=== PATIENT | male | born 1965 | race Caucasian/White ===

== ENCOUNTER 2023-03-16 14:47 | Emergency (ER) | payer OTHER ==
[2023-03-16 15:13] VITALS: O2SAT 95
[2023-03-16] MEDS ORDERED: Adacel Vial IM ONE ×2 (15:18→15:32)
[2023-03-16 16:01] VITALS: PULSE 84
--- NOTE | 2023-03-16 16:03 | XRAY ---
CLINICAL HISTORY:Accident. COMPARISON:None. TECHNIQUES:Axial non-contrast CT scan of the brain was performed from the skull base to the high parietal region, with bone window, coronal, and sagittal reformats. FINDINGS: The visualized brain parenchyma shows normal appearance. No focal parenchymal abnormalities are demonstrated. Hardy-white matter differentiation is maintained. No midline shifts or deformity. No intracerebral or extra axial hematoma. Normal size and configuration of the cerebral ventricles. Normal CT appearance of the posterior fossa structures namely the cerebellar hemispheres, brainstem, and cerebellar peduncles. The cerebellopontine angles are clear. The pituitary gland, the pineal gland, and the optic chiasm is unremarkable. The osseous structures in the skull base are unremarkable. No definite calvarium fractures. The scanned paranasal sinuses are clear. IMPRESSION: Normal CT study of the brain and skull bones. Electronically Signed by: Kate Saba MD. 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
[2023-03-16] MEDS ORDERED: HYDROCODONE-ACETAMIN 10-325 MG PO ONE (16:27)
[2023-03-16] MEDS ORDERED: HYDROCODONE-ACETAMIN 10-325 MG ONE (16:28)
--- NOTE | 2023-03-16 16:31 | XRAY ---
CLINICAL HISTORY:Accident. COMPARISON:None. TECHNIQUES:A thin axial CT of the cervical spine was performed with sagittal and coronal reconstructions without contrast. FINDINGS: Straightening of the cervical curvature. Normal alignment of the cervical vertebra. No spondylolithesis. No evident fracture lines. The vertebral bodies are normal in height. No lytic or sclerotic bone lesion. Cervical spondylodegenerative changes with multilevel vertebral end plates marginal osteophytes formation. The craniovertebral measures are unremarkable. Narrowing of C5-C6 and C6-C7 intervertebral disc spaces. Level by Level analysis. C2-C3: No central canal or neuroforaminal stenosis. C3-C4: No central canal or neuroforaminal stenosis. C4-C5: central osteophytic posterior focal protrusion with no related neuroforaminal stenosis. C5-C6: diffuse osteophytic posterior disc bulge causing mild central canal or neuroforaminal stenosis. C6-C7: diffuse disc bulge causing mild central canal or neuroforaminal stenosis. IMPRESSION: Evidence of cervical muscle spasm. No fracture was identified. Cervical spondylosis. C5-C6 and C6-C7 focal disc lesions causing neural impingement. Electronically Signed by: Kate Saba MD. 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
--- NOTE | 2023-03-16 16:33 | ERPHSYRPT ---
- History of Present Illness Source: patient, other () Exam Limitations: no limitations Patient Subjective Stated Complaint: Pt was running an escavator when it jumped forward and pt was thrown into the roll bar and hit his head causing a laceration to his upper medial forehead and jammed his neck causing pain in his neck Triage Nursing Assessment: Pt brought to the ER by his daughter, hypertensive, rates pain as 3/10, 3.5 cm laceration to the distal medial forehead, pain to the neck, bleeding controlled, denies LOC, not on blood thinners, denies any other injuries Physician History: 57 yo WM w head injury/scalp lac after hitting head on roll bar while operating an 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 Pt denies LOC but was dazed. pain is moderate, and he alos complains of cervical pain. He denies other injuries at this time and will need a Tdap. C-collar placed on pt. Occurred: just prior to arrival Severity: moderate Head Injury Location: frontal Method of Injury: direct blow Loss of Consciousness: no loss of consciousness, dazed Associated Symptoms: denies symptoms Allergies/Adverse Reactions: No Known Drug Allergies Allergy (Verified 03/16/23 15:13) Home Medications: Tamsulosin HCl 0.4 mg [Flomax 0.4 MG] 0.4 mg PO BID 03/16/23 [History] Hx Influenza Vaccination/Date Given: No Hx Pneumococcal Vaccination/Date Given: No Travel Risk - International Travel Have you traveled outside of the country in past 3 weeks: No - Coronavirus Screening Are you exhibiting any of the following symptoms?: No Close contact with a COVID-19 positive Pt in past 14-21 Days: No - Vaccine Status Have you recieved a Covid-19 vaccination: Yes 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 - Vaccination Dates Date of 2cond Vaccination (if applicable): 2020 - Review of Systems Constitutional: No Symptoms Eyes: No Symptoms Ears, Nose, & Throat: No Symptoms Respiratory: No Symptoms Cardiac: No Symptoms Abdominal/Gastrointestinal: No Symptoms Genitourinary Symptoms: No Symptoms Musculoskeletal: No Symptoms, Neck Pain Skin: No Symptoms Neurological: No Symptoms, Headache Psychological: No Symptoms Endocrine: No Symptoms Hematologic/Lymphatic: No Symptoms Immunological/Allergic: No Symptoms - Past Medical History Pertinent Past Medical History: Yes Respiratory History: Sleep Apnea Other Medical History: prostate - Past Surgical History Past Surgical History: No - Social History Smoking Status: Smoker, status unknown Exposure to second hand smoke: No Drug Use: none Patient Lives Alone: No - Nursing Vital Signs Nursing Vital Signs: Initial Vital Signs Temperature 97.6 F 03/16/23 14:57 Pulse Rate 80 03/16/23 14:57 Blood Pressure 144/84 03/16/23 14:57 O2 Sat by Pulse Oximetry 95 03/16/23 14:57 Pain Scale Pain Intensity 0 Hypertensive - [place] Coma Score Best Eye Response ([place]): (4) open spontaneously Best Verbal Response ([place]): (5) oriented Best Motor Response ([place]): (6) obeys commands [place] Total: 15 - Physical Exam General Appearance: no apparent distress Head Injury: lacerations (3.5cm frontal scalp laceration) Eye Exam: bilateral eye: normal inspection, PERRL, EOMI ENT Exam: airway nml, No evidence of ENT injury, No dental injury, No nml ext.inspection, No clear fluid (ears), No clear fluid (nose) Neck Exam: supple, trachea midline, other (C-spine TTP) Cardiovascular/Respiratory Exam: chest non-tender, normal breath sounds, regular rate/rhythm, heart sounds normal Gastrointestinal/Abdominal Exam: soft, non tender Back Exam: normal inspection, normal range of motion, No vertebral tenderness Extremity Exam: non-tender, normal range of motion, normal inspection, normal capillary refill Mental Status Exam: alert, oriented x 3, 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 Exam: normal hearing, normal speech, PERRL Coordination/Gait Exam: normal gait, normal cerebellar function, negative Romberg's sign Motor/Sensory Exam: no motor deficit, no sensory deficit, no pronator drift, negative Babinski's sign DTR Exam: bicep (R): 2+, bicep (L): 2+ Skin Exam: normal color, warm, dry, No rash Lymphatic Exam: No adenopathy SpO2 Interpretation: normal SpO2: 95 O2 Delivery: Room Air Procedures - Laceration/Wound Repair Frontal Time of Procedure: 16:35 Wound Location: head (Frontal scalp) Wound Length (cm): 3.5 Wound's Depth, Shape: superficial Wound Explored: clean Irrigated: No Hibiclens Prep: Yes Wound Repaired With: [place] ([place] x5) Layer Closure?: No - Course Nursing assessment & vital signs reviewed: Yes - CT Exams Head CT Interpretation: Tele-radiologist Report (CT head negative) Cervical Spine CT Interpretation: Tele-radiologist Report (No fx/cervical muscle spasm/DDD) Ordered Tests: Active Orders 24 hr Category Date Time Status CERVICAL SPINE WO CONTRAST [CT] Stat Exams 03/16/23 15:14 Completed HEAD WITHOUT CONTRAST [CT] Stat Exams 03/16/23 15:14 Completed Medication Summary Discontinued Medications Generic Name Dose Route Start Last Admin Trade Name Nasir PRN Reason Stop Dose Admin Hydrocodone Bitart/Acetaminophen 1 tablet 03/16/23 16:27 03/16/23 16:31 Hydrocodone/Acetamin 10-325 Mg Tablet PO 03/16/23 16:28 1 tablet STAT ONE Administration Hydrocodone Bitart/Acetaminophen Confirm 03/16/23 16:28 Hydrocodone/Acetamin 10-325 Mg Tablet Administered 03/16/23 16:29 Dose 1 tablet .ROUTE .STK-MED ONE Diphtheria/Tetanus/Acell Pertussis 0.5 ml 03/16/23 15:18 03/16/23 15:32 Tdap --Diph,Pertuss(Acell),Tet Vac/Pf 0.5 Ml Vial IM 03/16/23 15:19 0.5 ml .ONCE ONE Administration Diphtheria/Tetanus/Acell Pertussis Confirm 03/16/23 15:32 Tdap --Diph,Pertuss(Acell),Tet Vac/Pf 0.5 Ml Vial Administered 03/16/23 15:33 Dose 0.5 ml IM .STK-MED ONE - Progress Progress Note: 03/16/23 16:39 Nursing note and vital signs reviewed No food or housing insecurities noted Pt refused pain meds after H&P Later norco10 po x1 C-collar placed per nursing, later removed per ER physician after CT C-spine neg for fx Tdap given Counseled pt/family regarding: diagnosis, need for follow-up, rad results Medical Desision Making - Independent Historian Additional History obtained from: Spouse - Diagnostic Testing Radiological Interpretation: Reviewed by me, Teleradiologist Report - Risk of complications The pt has a mod risk of morbidity or mortality based on: Need for prescription drug management - Departure Departure Disposition: Home Clinical Impression: Cervical strain, acute, Scalp laceration, Minor closed head injury Condition: Stable Critical Care Time: No Referrals: CARMELO ALVARADO MD [Primary Care Provider] - Follow up/PCP as directed Instructions: Wound Care (DC), Laceration Repair With Stitches (DC) Additional Instructions: Keep laceration dry for 2 days, then gently wash with soap/water 1-2 times a day Alderson out in 10 days Watch for signs of infection-increasing redness/any pus/temperature greater than 100.5 Pain meds as needed(Use a stool softener with pain meds) Prescriptions: Oxycodone HCl/Acetaminophen [Percocet 5-325 mg Tablet] 1 each PO Q6HPRN PRN #6 tablet MDD 4 tabs PRN Reason: Pain
[2023-03-16 16:48] VITALS: BP 136/67
== END 2023-03-16 16:53 | disposition home or self-care (01) ==
LOC: ED 14:47
DX: S01.81XA Laceration without foreign body of other part of head, initial encounter (principal); S09.90XA Unspecified injury of head, initial encounter; S16.1XXA Strain of muscle, fascia and tendon at neck level, initial encounter; W22.8XXA Striking against or struck by other objects, initial encounter; Y93.H3 Activity, building and construction; Z79.891 Long term (current) use of opiate analgesic; Z79.899 Other long term (current) drug therapy; Z23 Encounter for immunization
CPT/HCPCS: 12002; 70450; 72125; 90471; 90715; 99283; A9270-GY